=== PATIENT | male | born 1935 | race Caucasian/White ===

== ENCOUNTER 2016-12-02 17:30 | Inpatient (IN) | payer MEDICARE, OTHER ==
[~2016-12-02] VITALS: Ht 165.1 cm; Wt 76.7 kg
[2016-12-02 17:30] VITALS: BP 82/55; PULSE 79; RESP 19; TEMP 96.9; O2SAT 97
--- NOTE | 2016-12-02 17:30 | NUR ---
BROUGHT IN BY ACLS ELENA 154 AND CHANTELL STEVENS, PLACED IN BED #2 AND TRIAGED. REPORT GIVEN TO CYDNEY
--- NOTE | 2016-12-02 17:30 | NUR ---
Placed on mental health practitioner, blood pressure machine and pulse oximeter. To gown for exam. Side rails up.
--- NOTE | 2016-12-02 17:35 | NUR ---
ER at bedside examining patient.
--- NOTE | 2016-12-02 17:40 | NUR ---
Patient brought in by ambulance from home.Patient is a poor historian, alert to name only,verbal, slow to respond, disoriented to place, date and situation.Per , patient had syncopal episode in the AM today.Upon assessment, patient disoriented and confused and hypotensive.Patient's face is discolorated due to his medication.No signs of shortness of breath, pain distress at this time.
[2016-12-02] MEDS ORDERED: NACL 0.9% 1,000 ML IV SCH (17:42)
--- NOTE | 2016-12-02 18:00 | NUR ---
prior to arrival IV 20G at lac,easy flush.dressing intact.
--- NOTE | 2016-12-02 18:02 | NUR ---
transported to CT scan via [facility]
[2016-12-02 18:07] LABS: BASOPHILS % (AUTO) 0.3 % (0.0-2.0); EOSINOPHILS % (AUTO) 0.1 % (0.0-4.0); HEMATOCRIT 31.9 % (36-54); HEMOGLOBIN 10.5 g/dL (14.0-18.0); LYMPHOCYTES # (AUTO) 0.3 K/uL (1.0-5.5); LYMPHOCYTES % (AUTO) 1.9 % (20.5-51.5); MEAN CORPUSCULAR HEMOGLOBIN 32 pg (27-31); MEAN CORPUSCULAR HGB CONC 33 % (32-36); MEAN CORPUSCULAR VOLUME 97 fL (79.0-98.0); MONOCYTES # (AUTO) 0.3 K/uL (0.0-1.0); MONOCYTES % (AUTO) 1.9 % (1.7-9.3); NEUTROPHILS # (AUTO) 12.6 K/uL (1.8-7.7); NEUTROPHILS % (AUTO) 95.8 % (40.0-70.0); RED BLOOD CELL COUNT(AUTO) 3.28 MIL/uL (4.2-6.2); RED CELL DISTRIBUTION WIDTH 12.9 % (9.0-15.0); WHITE BLOOD COUNT (AUTO) 13.2 K/uL (4.8-10.8)
[2016-12-02] MEDS ORDERED: AMIO200T2 PO (18:10)
[2016-12-02] MEDS ORDERED: LEVE500T13 (18:10)
[2016-12-02] MEDS ORDERED: ATEN100T PO (18:10)
[2016-12-02] MEDS ORDERED: VALS160T23 PO (18:10)
[2016-12-02] MEDS ORDERED: DOCU-144 PO (18:10)
[2016-12-02] MEDS ORDERED: DEXA4TAB PO (18:10)
[2016-12-02] MEDS ORDERED: PANT40TA4 PO (18:10)
--- NOTE | 2016-12-02 18:10 | NUR ---
Medication reconciliation completed with information provided by pt's medication bottles. Any prior medication reconciliation on file was reviewed and corrected.
[2016-12-02 18:18] LABS: INR 1.4 (0.80-1.20); PROTHROMBIN TIME 15.9 SECS (9.5-12.5)
[2016-12-02 18:21] LABS: ALANINE AMINOTRANSFERASE 29 U/L (12-78); ANION GAP 16 (5-15); ASPARTATE AMINOTRANSFERASE 27 U/L (10-37); CALCIUM 7.4 mg/dL (8.4-11.0); CHLORIDE 98 mmol/L (98-107); CREATININE 2.18 mg/dL (0.55-1.30); GLUCOSE 233 mg/dL (70-99); POTASSIUM 4.3 mmol/L (3.5-5.1); SODIUM SERUM 134 mmol/L (136-145); TOTAL BILIRUBIN 2.1 mg/dL (0.0-1.0); TOTAL PROTEIN, SERUM 5.1 g/dL (6.4-8.3); UREA NITROGEN, BLOOD 36 mg/dL (8-21)
[2016-12-02] MEDS ORDERED: VANCOMYCIN HCL 1,000 MG in D5W 250 ML IV ONE (18:30)
[2016-12-02] MEDS ORDERED: LEVOFLOXACIN 500 MG/D5W 100 ML IV ONE (18:30)
--- NOTE | 2016-12-02 18:30 | NUR ---
# 16 FR Snow catheter with use of sterile technique. Immediate return of 10 cc clear, yellow urine noted. Bedside drainage bag placed below level of bladder. Urine sample collected and sent to lab. Pt tolerated procedure well. Patient arrived with snow in place, changed due to standard of practice prior to admission. Patient unable to toilet self.
[2016-12-02 18:31] LABS: PLATELET COUNT (AUTO) 133 K/uL (130-430)
[2016-12-02 18:46] LABS: BILIRUBIN,URINE NEGATIVE (NEGATIVE); CLARITY/URINE CLEAR (CLEAR); COLOR,URINE YELLOW (YELLOW); GLUCOSE,URINE NEGATIVE (NEGATIVE); KETONES,URINE NEGATIVE (NEGATIVE); LEUKOCYTE ESTERASE ,URINE NEGATIVE (NEGATIVE); NITRITE, URINE NEGATIVE (NEGATIVE); PROTEIN URINE TRACE (NEGATIVE)
[2016-12-02 18:49] LABS: BLOOD, URINE TRACE (NEGATIVE)
--- NOTE | 2016-12-02 19:00 | NUR ---
Verbal order recevied by Dr. Saucedo to infuse 1000ml NS bolus for sepsis protocol. carried out.
[2016-12-02 19:10] LABS: BACTERIA,URINE FEW /HPF (None Seen); FINE GRANULAR CASTS,URINE 0-3 /LPF (None Seen); HYALINE CASTS, URINE 0-1 /LPF (None Seen); MUCUS,URINE 1+ /LPF (None Seen); WBC,URINE 0-3 /HPF (0-3)
--- NOTE | 2016-12-02 19:25 | NUR ---
Transfer of care Report given to VJ Sarkar. Endorsed plan of care to night nurse, VJ Sarkar.
[2016-12-02] MEDS ORDERED: metroNIDAZOLE 500 mg/NS 100 ML IV ONE ×2 (19:30→22:03)
[2016-12-02 19:43] LABS: BLOOD GAS PH 7.435 (7.350-7.450)
[2016-12-02 19:44] LABS: ABG TOTAL HEMOGLOBIN 10.4 G/dL (12.0-18.0); BLOOD GAS BASE EXCESS -5.7 mmol/L (-3.0-3.0); BLOOD GAS COHb% 0.3 % (0.5-1.5); BLOOD GAS HHB 8.8 % (0.0-6.0); BLOOD O2Hb% 90.6 % (94.0-97.0)
[2016-12-02] MEDS ORDERED: NACL 0.9% 1,000 ML IV ONE (20:00)
[2016-12-02] MEDS ORDERED: ONDANSETRON HCL 4 MG/2 ML VIAL IVP PRN (20:00)
--- NOTE | 2016-12-02 20:20 | NUR ---
Patient to be transferred to ICU 5. Is being transferred due to higher level of care. Receiving facility has accepting physician and available space. ER physician has signed transfer form. Patient belongings inventoried and will be sent with family. Copy of nursing notes, lab reports, EKG, Physicians Orders and X-rays to be sent with patient. Report called to at receiving facility. Receiving physician is Dr. Calvillo.
--- NOTE | 2016-12-02 20:30 | NUR ---
ADMISSION: Patient admitted to ICU bed 5 via [facility] by 1 RN and 1 EMT. Patient was transferred from [facility] to [facility] by 4 staff members without any incident. Patient alert, oriented x 2 with periods of forgetfulness. No acute distress or SOB noted. Afebrile. IV access on the left AC G20 patent and intact. No signs of redness or swelling on the IV site. Ashton cath draining kimmie colored urine. Ab noted on the back of head S/P craniotomy. Right upper extremity redness and bump noted. Abdomen noted to be distended and with bruises, left upper thigh bruises, left lower extremity bruises and sacral redness noted. Denies pain or discomfort at this time. Placed call light within reach. Bed in lowest level with 3 side rails up. Bed brakes locked. Will continue to monitor.
[2016-12-02] MEDS ORDERED: VANCOMYCIN HCL 1000 MG/VIAL IV ONE (20:35)
--- NOTE | 2016-12-02 20:55 | NUR ---
O2 SAT: Patient's O2 sat noted to be 88-89% only. Patient in no acute distress. Patient verbalized that he is having a little difficulty breathing. Oxygen via nasal cannula at 2LPM administered. Will continue to monitor.
[2016-12-02 21:00] VITALS: BP_SYST 123; BP_SYST 128; BP_DIAS 88; BP_DIAS 94; PULSE 79; PULSE 81; RESP 25; RESP 27; TEMP 98; O2SAT 88
[2016-12-02] MEDS ORDERED: VANCOMYCIN HCL 1 GM/NS PREMIX 250 ML IV ONE (21:00)
[2016-12-02] MEDS: DEXAMETHASONE SOD PHOSPHATE 4 MG/ML VIAL IVP SCH ×2 (21:30→23:49)
--- NOTE | 2016-12-02 21:45 | NUR ---
SURGEON CONSULT: Dr. Nevarez here at ICU to see patient and to talk to family. No new orders received.
--- NOTE | 2016-12-02 21:50 | NUR ---
PAIN: Patient complaining of pain on the right side of his abdomen. Pain scale 6/10. No distress or SOB noted at this time. Repositioned for comfort. Will continue to monitor.
[2016-12-02] MEDS ORDERED: SODIUM BICARBONATE 8.4% JECT 50 MEQ/50 ML SYRINGE ONE (21:56)
[2016-12-02] MEDS: MORPHINE 2 MG/ML INJ. SYRINGE IVP PRN (21:57)
[2016-12-02 22:00] VITALS: BP 98/64; PULSE 79; RESP 23; O2SAT 97
[2016-12-02] MEDS: SODIUM BICARBONATE 8.4% JECT 50 MEQ in 0.45% NACL 1,000 ML IV SCH (22:36)
[2016-12-02] MEDS: levETIRAcetam 500 MG in NS 100 ML IV SCH (22:39)
[2016-12-02 23:00] VITALS: BP 94/46; PULSE 79; RESP 21; O2SAT 98
--- NOTE | 2016-12-02 23:29 | NUR ---
NGT: Inserted NGT on the right nare and attached to a low intermittent suction. Patient tolerated procedure well. Moderate discomfort noted.
--- NOTE | 2016-12-02 23:50 | NUR ---
NGT PULLED: Patient pulled NGT, when told that we need to insert it again, patient began to be aggressive and said "NO". Explained importance and benefits of having the NGT but patient strongly refused. Respected patient's rights. Will continue to monitor.
[2016-12-03] VITALS (16 sets, daily range): BP systolic 92–128; BP diastolic 19–68; PULSE 73–81; RESP 15–23; TEMP 97.7–98.7; O2SAT 92–98; Ht 165.1 cm; Wt 76.7 kg
--- NOTE | 2016-12-03 01:27 | NUR ---
PT UPDATE: Patient sleeping comfortably at this time. No acute distress or SOB noted. O2 sat at 95% on O2 2LPM nasal cannula. Vital signs stable. Safety measures in place. Will continue to monitor.
--- NOTE | 2016-12-03 03:30 | NUR ---
PATIENT RESTING: Patient resting quietly. No acute distress noted. Vital signs within normal range. No significant change in condition. Will continue to monitor.
--- NOTE | 2016-12-03 05:00 | NUR ---
Resident Care Supervisor at bedside taking AM lab draw.
--- NOTE | 2016-12-03 05:15 | NUR ---
PAIN: Patient verbalized pain on his abdomen when turning. Pain scale 6/10. Will administer pain medication. Patient in no acute distress or SOB at this time. Bed maintained at lowest level with 2 side rails up. Safety precautions in place. Vital signs stable. All needs met. Will continue to monitor.
[2016-12-03] MEDS: MORPHINE 2 MG/ML INJ. SYRINGE IVP PRN (05:19)
[2016-12-03] MEDS: DEXAMETHASONE SOD PHOSPHATE 4 MG/ML VIAL IVP SCH ×3 (05:41→17:53)
[2016-12-03] MEDS: metroNIDAZOLE 500 mg/NS 100 ML IV SCH ×2 (05:42→13:47)
[2016-12-03 06:39] LABS: BASOPHILS # (AUTO) 0.1 K/uL (0.0-0.2); BASOPHILS % (AUTO) 0.5 % (0.0-2.0); HEMATOCRIT 29.3 % (36-54); HEMOGLOBIN 9.7 g/dL (14.0-18.0); LYMPHOCYTES # (AUTO) 0.3 K/uL (1.0-5.5); MEAN CORPUSCULAR HEMOGLOBIN 33 pg (27-31); MEAN CORPUSCULAR HGB CONC 33 % (32-36); MEAN CORPUSCULAR VOLUME 98 fL (79.0-98.0); MONOCYTES # (AUTO) 0.2 K/uL (0.0-1.0); MONOCYTES % (AUTO) 1.5 % (1.7-9.3); NEUTROPHILS # (AUTO) 13.4 K/uL (1.8-7.7); PLATELET COUNT (AUTO) 102 K/uL (130-430); RED BLOOD CELL COUNT(AUTO) 2.98 MIL/uL (4.2-6.2); RED CELL DISTRIBUTION WIDTH 12.6 % (9.0-15.0)
[2016-12-03 06:41] LABS: ANION GAP 7 (5-15); CHLORIDE 105 mmol/L (98-107); CREATININE 1.51 mg/dL (0.55-1.30); GLUCOSE 151 mg/dL (70-99); PHOSPHORUS 3.5 mg/dL (2.7-4.5); POTASSIUM 4.1 mmol/L (3.5-5.1); SODIUM SERUM 137 mmol/L (136-145); UREA NITROGEN, BLOOD 37 mg/dL (8-21)
[2016-12-03 07:02] LABS: CALCIUM 6.6 mg/dL (8.4-11.0)
--- NOTE | 2016-12-03 07:50 | NUR ---
AM ASSESSMENT Received patient awake and able to answer questions properly. Abdomen is distended and firm to touch. Patient has declined to be medicated. Repositioned in bed for comfort. Patient denies pain. Oral hygiene provided. Lips and mouth dry. Patient on NPO and vital signs stable at this time.
[2016-12-03] MEDS: levETIRAcetam 500 MG in NS 100 ML IV SCH (08:40)
--- NOTE | 2016-12-03 09:05 | NUR ---
Nutrition Update Garth Scale 14 noted. Pt admitted for perforated diverticulitis. Diet: NPO BMI: 28.3 kg/m2 RD to follow per nutrition care standards.
--- NOTE | 2016-12-03 10:23 | NUR ---
PATIENT ACCESS REGISTRAR. MESSAGE LEFT TO [facility] TO CALL BACK ICU.
[2016-12-03] MEDS: SODIUM BICARBONATE 8.4% JECT 50 MEQ in 0.45% NACL 1,000 ML IV SCH (11:27)
--- NOTE | 2016-12-03 13:07 | NUR ---
REPORT. CALLED IN TO PATO PEREZ RN. PATIENT WILL BE TRANSFERRED TO MED SURG DEPT.
--- NOTE | 2016-12-03 13:12 | NUR ---
[facility]. CALLED [facility] DEPT, [facility], FAXED DOCUMENTS WERE RECEIVED.
--- NOTE | 2016-12-03 13:54 | NUR ---
SURGEON. DR MCDONOUGH HERE AND SEEN PATIENT.
--- NOTE | 2016-12-03 14:00 | NUR ---
TO [facility]. TRANSPORTED TO ROOM 131-A, WITH PORTABLE O2 VIA NASAL CANNULA, IVF CONTINUES AT 100 ML PER HR INTO LEFT A/C.
--- NOTE | 2016-12-03 15:26 | NUR ---
[facility]. LIAISON SHARON HERE, SPOKE WITH PT AND HIS FAMILY REGARDING CONSENTS.
--- NOTE | 2016-12-03 16:30 | NUR ---
HOSPICE. REPORT GIVEN TO HOSPICE NURSE, TO LEAVE HIS AVILA CATHETER AND IV ACCESS IN.
--- NOTE | 2016-12-03 18:45 | NUR ---
PT SLEEPING PT. SLEEPING. EYES CLOSED WITH RISE AND FALL OF CHEST NOTED. VITAL SIGNS WITHIN NORMAL LIMITS. CALL LIGHT WITHIN REACH.
--- NOTE | 2016-12-03 19:00 | NUR ---
REPORT. GIVEN TO ONCOMING RUSSIAN TEACHER NURSE.
--- NOTE | 2016-12-03 20:32 | NUR ---
TRANSFER ACKNOWLEDGEMENT TRANSFER ACKNOWLEDGMENT T/O CONSENT OF TRANSFER FROM FAMILY MEMBER, MARY ANNE BUTTS, DAUGHTER, . WITNESS WITH CHARGE NURSE ANTOLIN ZABALA, FORM PLACED IN CHART.
--- NOTE | 2016-12-03 20:40 | NUR ---
ROUNDS PATIENT IS REQUESTING WATER BUT NPO. ORAL SWABS WERE PROVIDED AND ORAL CARE GIVEN. ALL PATIENTS NEED WERE MET. AMBULANCE TRANSPORT ARRIVING TO TRANSFER PATIENT TO [facility]. VITAL SIGNS ARE WNL. HOSPICE REQUESTED THAT IV BE KEPT IN PLACE WELL AVILA CATHETER. FLUIDS D/C. REPORT GIVEN TO NURSE JOAO ZABALA AT [facility] AT 1999. PHOTOS WERE TAKEN OF PATIENTS WOUNDS, BRUISES, AND INCISION. NO S/S OF ACUTE DISTRESS NOTED. FALL PRECAUTIONS IN PLACE AND CALL LIGHT WITHIN REACH.
[2016-12-03] MEDS ORDERED: VANCOMYCIN HCL 1,000 MG in NS 250 ML IV SCH (21:00)
[2016-12-03] MEDS ORDERED: LEVOFLOXACIN 250 MG/D5W 50 ML IV SCH (21:00)
[2016-12-03] MEDS ORDERED: LEVOFLOXACIN 500 MG/D5W 100 ML IV SCH (21:00)
--- NOTE | 2016-12-03 21:02 | NUR ---
OPENING NOTES REPORT RECEIVED AT BEDSIDE FROM DAYSKYFT NURSE. PATIENT IS ALERT TO HIS NAME BUT CONFUSED. IV IS PATENT. AVILA CATHETER IN PLACE AND DRAINING, URINE IS NAOMIE AT 100CC. PULSES ARE STEADY AND REGULAR BILATERALLY. STOMACH IS FIRM AND DISTENDED. PATIENT DENIES PAIN. NASAL CANNULA IN PLACE AND TITRATING 2L OXYGEN. NO S/S OF ACUTE DISTRESS NOTED. WILL CONTINUE TO MONITOR.
--- NOTE | 2016-12-03 21:03 | NUR ---
TRANSFER AMBULANCE AMBULANCE HAS ARRIVED TO TRANSFER PATIENT TO [facility]. PATIENT IS AWAKE AND ALERT WITH NO S/S OF ACUTE DISTRESS NOTED. PATIENT REPORT GIVEN AT BEDSIDE TO EMT. IV LEFT A/C GAUGE [address] AVILA LEFT IN PLACE. VITAL SIGNS WNL.
--- NOTE | 2016-12-03 21:04 | NUR ---
D/C/transition of care Patient given medication reconciliation form and D/C instructions. Exit Care provided. MD discussed with patient the results and treatment provided. Patient in stable condition, ID band removed. 24 hour medication report included in packet. Patient educated on pain management. No belongings noted, patient agreed.
== END 2016-12-03 21:03 | disposition hospice, inpatient (51) | DRG 871 ==
LOC: SED 17:30 → SIC 19:48 → EDBD 19:48 → SIC 20:20 → SMU 12-03 14:12
PROVIDERS: ADMIT Internal Medicine; ATTEND Internal Medicine
DX: A41.9 Sepsis, unspecified organism (principal); E43 Unspecified severe protein-calorie malnutrition; K57.80 Diverticulitis of intestine, part unspecified, with perforation and abscess without bleeding; N17.9 Acute kidney failure, unspecified; C71.9 Malignant neoplasm of brain, unspecified; I10 Essential (primary) hypertension; I25.10 Atherosclerotic heart disease of native coronary artery without angina pectoris; I48.91 Unspecified atrial fibrillation; Z66 Do not resuscitate; Z51.5 Encounter for palliative care; K21.9 Gastro-esophageal reflux disease without esophagitis; D63.0 Anemia in neoplastic disease; Z95.5 Presence of coronary angioplasty implant and graft; Z95.0 Presence of cardiac pacemaker; Z88.0 Allergy status to penicillin; Z79.899 Other long term (current) drug therapy; Z68.28 Body mass index [BMI] 28.0-28.9, adult
CPT/HCPCS: 36415; 36600; 70450-TC; 71010; 80048; 80053; 81000-TC; 82803-TC; 83605; 83735-TC; 83880; 84100-TC; 84484; 85025; 85610-TC; 85730-TC; 87040-TC; 87081; 87086; 93005; 96360; 99285; J1100; J1953; J1956; J2270; J3370; J3490; J7030; J7050